=== PATIENT | female | born 1975 | race Caucasian/White ===

== ENCOUNTER 2023-01-21 11:16 | Outpatient (CLI) | payer BC, SELFPAY | END 2023-01-21 11:17 | disposition home or self-care (01) | PROVIDERS: PCP Family Medicine; Visit Provider Family Medicine | DX: I10 Essential (primary) hypertension (principal); E78.5 Hyperlipidemia, unspecified; E55.9 Vitamin D deficiency, unspecified; R74.8 Abnormal levels of other serum enzymes; Z13.0 Encounter for screening for diseases of the blood and blood-forming organs and certain disorders involving the immune mechanism; Z13.29 Encounter for screening for other suspected endocrine disorder | CPT/HCPCS: 80048; 80061; 84443 ==

== ENCOUNTER 2023-06-09 09:44 | Outpatient (CLI) | payer BC, SELFPAY ==
--- OUTSIDE RECORDS SUMMARY | 2023-06-09 09:53 | XMS_ITS | Clinical Summary ---
Author Name Unknown Organization [facility] Address [place], [place] [address] Care Team Providers Care Devops Name Role Phone Mainor Diehl MD Primary Care Provider [phone] Allergies No known active allergies Medications No known medications Immunizations Name Administration Dates Next Due Influenza, IIV3 (Age 6-35 mos) 04/05/2014 Influenza, IIV3 (Age >=3 years) 04/14/2008 Td (Age >=7 Years) 08/24/2003 Tdap 04/05/2014 Social History Tobacco Use Types Packs/Day Years Used Date Smoking Tobacco: Never Smokeless Tobacco: Never Tobacco Cessation:Counseling Given: Yes Sex and Gender Information Value Date Recorded Sex Assigned at Not on file Gender Identity Not on file Sexual Orientation Not on file Obstetrics History Last Filed Vital Signs Vital Sign Reading Time Taken Comments Blood Pressure 136/74 11/16/2017 2:25 PM CDT Pulse 72 11/16/2017 2:25 PM CDT Temperature 36.8 ??C (98.3 ??F) 11/16/2017 2:25 PM CD T Respiratory Rate - - Oxygen Saturation 98% 11/16/2017 2:25 PM CDT Inhaled Oxygen Concentration - - Weight 78.9 kg (174 lb) 11/16/2017 2:25 PM CDT Height - - Body Mass Index - - Plan of Treatment Health Maintenance Due Date Last Done Comments COVID-19 vaccine series (#1) 1976 Depression screening for age 12+ 1988 HIV for age 15-65 1991 BMI (ht and wt on same day) for age 18+ 1994 Hepatitis C screening for ag e 18-79 1994 Colonoscopy through age 75 2021 Lipids for age 45-75 2021 Mammogram for age 45-75 2021 Pap test for age 21-65 11/30/2021 9, 11/30/2018, 04/05/2014 Influenza for age 9-49 01/16/2023 04/14/2008 Tetanus booster 04/05/2024 04/05/2014, 08/24/2003 Tdap Completed 04/05/2014 Pneumococcal series for age 6-64 Aged Out No longer eligible b ased on patient's age to complete this topic Care Teams Devops Relationship Specialty Start Date End Date Mainor Diehl MD PCP - General 02/10/10
--- NOTE | 2023-06-09 10:15 | CRLHL7_ITS ---
For Patients: As a result of the Cures Act, medical imaging exams and procedure reports are released immediately into your electronic medical record. You may view this report before your referring provider. If you have questions, please contact your health care provider. BILATERAL SCREENING MAMMOGRAM WITH COMPUTER-AIDED DETECTION AND TOMOSYNTHESIS TECHNIQUE: CC and MLO views were obtained. These mammographic images have been obtained using full-field digital technique. These mammographic images were interpreted with the benefit of computer-aided detection. Breast Tomosynthesis was used in this interpretation. COMPARISON FILM: 01/02/17, 04/07/14. FINDINGS: There are scattered areas of fibroglandular density IMPRESSION: There is no radiographic evidence for malignancy. ASSESSMENT: BI-RADS Category 1: Negative RECOMMENDATION: Routine screening mammogram in 1 year. A lay language report of this examination will be provided to the patient. Abdi Shin M.D. Diagnostic Radiologist [email or web address] FRANCESCA/livan / be/Dictated by: Abdi Shin MD @ 06/09/2023 11:59:00 AM (Electronically Signed)
== END 2023-06-09 09:45 | disposition home or self-care (01) ==
PROVIDERS: PCP Family Medicine; Visit Provider Family Medicine
DX: Z12.31 Encounter for screening mammogram for malignant neoplasm of breast (principal)
CPT/HCPCS: 77063; 77067

== ENCOUNTER 2023-08-04 11:15 | Outpatient (CLI) | payer BC, SELFPAY | END 2023-08-04 11:16 | disposition home or self-care (01) | PROVIDERS: PCP Family Medicine; Visit Provider Physician Assistant | DX: N93.8 Other specified abnormal uterine and vaginal bleeding (principal); Z12.4 Encounter for screening for malignant neoplasm of cervix | CPT/HCPCS: 84443 ==

== ENCOUNTER 2023-08-06 13:57 | Outpatient (CLI) | payer BC, SELFPAY ==
--- NOTE | 2023-08-06 14:00 | US_ITS ---
Patient: LATRICIA CONNER Facility:?[facility] RIS Patient ID:?[id number] Site Patient ID:?[id number]. Site :?[id number] Study:?US-Pelvis TA/TV-08/06/2023 2:50:40 PM Ordering Physician:SIRENA Final Report: INDICATION: Abnormal uterine bleeding COMPARISON: none TECHNIQUE: 2D delong scale and color Doppler images were acquired of the pelvis using a transabdominal and transvaginal approach. FINDINGS: Left posterior lower uterine segment fibroid is present measuring 4.1 x 4.0 x 4.4 cm. Cervical nabothian cysts are present. Uterus measures 10.0 cm in length by 6.2 cm in AP diameter by 6.0 cm in transverse dimension. The endometrial lining measures 15 mm in composite thickness. The right ovary measures 6.2 x 4.8 x 2.1 cm in size and the left ovary measures 3.5 x 1.7 x 2.3 cm. The ovaries demonstrate normal arterial and venous blood flow on color Doppler analysis. There are no suspicious fluid collections within the cul-de-sac. Simple anechoic right ovarian cyst measures 5.0 x 4.2 x 4.5 cm. IMPRESSION: Left posterior lower uterine segment fibroid measuring 3.7 cm. Endometrial thickness 15 millimeters. Dictated by Abdi Shin MD @ 08/07/2023 11:32:19 AM Signed by:?Abdi Shin MD @08/07/2023 11:32:19 AM (Electronic Signature)
== END 2023-08-06 13:58 | disposition home or self-care (01) ==
LOC: US 13:58
PROVIDERS: PCP Family Medicine; Visit Provider Physician Assistant
DX: N93.8 Other specified abnormal uterine and vaginal bleeding (principal); D25.9 Leiomyoma of uterus, unspecified
CPT/HCPCS: 76830; 76856

== ENCOUNTER 2023-10-07 08:57 | Outpatient (CLI) | payer BC, SELFPAY ==
--- OUTSIDE RECORDS SUMMARY | 2023-10-07 08:59 | XMS_ITS | Clinical Summary ---
Author Organization [facility] Address [place], [place] [address] Care Team Providers Care Kier Operator Name Role Phone Mainor Diehl MD Primary Care Provider [phone] Allergies No known active allergies Medications No known medications Encounters Date Type Department Care Team Description 08/19/2023 Lab Requisition [facility] [phone] SarahAugust CHIQUITA Marcum 08/05/2023 Lab Requisition [facility] [phone] Sarah August CHIQUITA Marcum from Last 3 Months Immunizations Name Administration Dates Next Due Influenza, [...] Health Maintenance Due Date Last Done Comments Depression screening for age 12+ 1988 HIV for age 15-65 1991 BMI (ht and wt on same day) for age 18+ 1994 Hepatitis C screening for age 18-79 1994 Colonoscopy through age 75 2021 Lipids for age 45-75 2021 Mammogram for age 45-75 2021 COVID-19 vaccine series (2022-24 season) 2023 Influenza for age 9-49 01/17/2024 04/14/2008 Tetanus booster 04/05/2024 04/05/2014, 08/24/2003 Pap test for age 21-65 08/03/2026 , 08/04/2023, 11/30/2018, Additional history exists Tdap Completed 04/05/2014 Pneumococcal series for age 6-64 Aged Out No longer eligible based on patient's age to complete this topic Procedures Procedure Name Priority Date/Time Associated Diagnosis Comments LAB TRACKING EVENT Routine 08/18/2023 11 :55 AM CDT PATH TISSUE EXAM Routine 08/18/2023 11:5 5 AM CDT LAB TRACKING EVENT Routine 08/04/2023 11 :15 AM CDT MATE FOURTH THIN PREP PAP SCREEN IMAGED Routine 08/04/2023 11:15 AM CDT HPV THIN PREP Routine 08/04/2023 11:15 AM CDT from Last 3 Months Results * LAB TRACKING EVENT (08/18/2023 11:55 AM CDT) Only the most recent of2 resultswithin the time period is included. Other (Other) Client Collect / Unknown 08/18/2023 11:55 AM CDT 08/19/2023 3:33 PM CDT August Trixie Smith PA-C LAB BILL ONLY [facility] [address] [place] [address], [place] * PATH TISSUE EXAM (08/18/2023 11:55 AM CDT) Case Report Pathology Report ?Case: [id number] ? Authorizing Provider: ??Tammy Smith PA-C ?Collected: ? 08/18/2023 1155 ? Ordering Location: ? [facility] ?Received: ?08/19/2023 1655 ? Pathologist: ? Tramaine Dunn MD ? Specimen: ?Endometrial Biopsy ? 08/20/2023 10:41 AM [facility] ENTRAL LABORATORY Final Diagnosis A) ENDOMETRIUM, BIOPSY: 1. Secretory endometrium 2. Negative for chronic endometritis 3. Negative for hyperplasia, atypia, and malignancy 08/20/2023 10:41 AM [facility] Clinical Information Dysfunctional uterine bleeding 08/20/2023 10:41 AM [facility] Gross Description A) Received in formalin, labeled with the patient's name and endometrial BX, is a 2.3 x 1.6 x 0.2 cm aggregate of pink-nava mucosa admixed with clotted blood and mucous. The specimen is entirely submitted in 1 cassette. EKW 08/19/2023 08/20/2023 10:41 AM CDT [facility]TRAK LAB[facility]ORY Microscopic Description The final diagnosis is based on microscopic examination of appropriate sections of all specimens. 08/20/2023 10:41 AM CDT [facility] EN[facility]AL [facility]ORY Additional Information Interpreted at [facility] - [address] [place] [id number] 08/20/2023 10:41 AM CDT [facility] Other (Endometrial Biopsy) 08/18/2023 11:55 AM CDT 08/19/2023 4:55 PM CDT Tammy Smith PA-C PATHOLOGY/CYTOLOGY [facility] [address] [place] [address], * (ABNORMAL) MATE FOURTH THIN PREP PAP SCREEN IMAGED (08/04/2023 11:15 AM CDT) Case Report Gynecologic Cytology Report ? Case: [id number] ? Authorizing Provider: ??Tammy Smith PA-C ?Collected: ? 08/04/2023 1115 ? Ordering Location: ? [facility] ?Received: ?08/05/2023 1736 ? First Screen: ?Sherie Escalona ? Pathologist: ? Stephanie Cary ? MD Jennifer ? Specimen: ?MATE FOURTH ThinPrep Vial Screening, Cervical ? 08/13/2023 3:37 PM CDT [facility] [employer] LABORATORY-C ENTRAL LABORATORY INTERPRETATION/ RESULT ATYPICAL SQUAMOUS CELLS OF UNDETERMINED SIGNIFICANCE (ASCUS)(A) (none) 08/13/2023 3:37 PM CDT [facility] EN[facility] IMEN ADEQUACY Satisfactory for evaluation Endocervical component present 08/13/2023 3:37 PM CDT [facility]- EN[facility] LAB[facility]AT[facility] HPV REQUEST HPV and PAP 08/13/2023 3:37 PM CDT [facility]-C ENTRAL LABORATORY Date of LMP 08/13/2023 3:37 PM CDT [facility] Comment:unk Last Pap Date 11/30/2018 08/13/2023 3:37 PM CDT [facility]-C ENTRAL LABORATORY Last Pap Result NIL 3:37 PM CDT [facility]- ENTRAL LABORATORY Abnormal Pap or Burns Bx in last 5 years No 08/13/2023 3:37 PM CDT [facility] Menstrual Status Regular Periods 08/13/2023 3:37 PM CDT [facility] Burns Bx Done Today No 08/13/2023 3:37 PM CDT [facility] Additional Information 08/13/2023 3:37 PM CDT [facility] Comment: Interpreted at [facility] - [address], [place] [address] Automated Review Successful 08/13/2023 3:37 PM CDT [facility] Comment:Specimen processed s uccessfully by automated lining finisher device, tuulPrep Imaging System, [employer] ANCILLARY TESTING MATE FOURTH HPV Ordered, Please see separate report 08/13/2023 3:37 PM CDT [facility] Note The pap test is a screening technique, not a diagnostic procedure. It is used primarily to screen for squamous cancers and precursor lesions. Published studies have shown that it is subject to both false negative and false positive results. The pap test should not be used as the sole means to diagnose or exclude pre-malignant and malignant lesions. 08/13/2023 3:37 PM CDT [facility] Other (Cervical) 08/04/2023 11:15 AM CDT 08/05/2023 5:36 PM CDT August Trixie Smith PA-C PATHOLOGY/CYTOLOGY [facility] [address] [place] [address], * HPV HIGH RISK (08/04/2023 11:15 AM CDT) TYPE 16 Negative Negative 08/07/2023 11:31 AM CDT [facility] TYPE 18 Negative Negative 08/07/2023 11:31 AM CDT [facility] OTHER HIGH RISK TYPES Negative Negative 08/07/2023 11:31 AM CDT [facility] Other (Cervical) 08/04/2023 11:15 AM CDT 08/05/2023 5:36 PM CDT Narrative [facility] - 08/07/2023 11:31 AM CDT HPV types 16, 18, 31, 33, 35, 39, 45, 51, 52, 56, 58, 59, 66 and 68 DNA were undetectable or below the pre-set threshold. Methodology: Shaina Addie 4800 HPV Test August Sarah [facility] [address] [place] [address], from Last 3 Months Care Teams Kier Operator Relationship Specialty Start Date End Date Mainor Diehl MD PCP - General 02/10/10
== END 2023-10-07 08:58 | disposition home or self-care (01) ==
LOC: LKVREF 08:57
PROVIDERS: PCP Family Medicine; Visit Provider Family Medicine
DX: E78.5 Hyperlipidemia, unspecified (principal); E11.9 Type 2 diabetes mellitus without complications; I10 Essential (primary) hypertension
CPT/HCPCS: 80061

== ENCOUNTER 2024-01-21 12:18 | Outpatient (CLI) | payer BC, SELFPAY ==
--- NOTE | 2024-01-21 12:15 | CRLHL7_ITS ---
For Patients: As a result of the Century Cures Act, medical imaging exams and procedure reports are released immediately into your electronic medical record. You may view this report before your referring provider. If you have questions, please contact your health care provider. INDICATION: Previous ovarian cyst COMPARISON: 08/06/2023 TECHNIQUE: 2D delong scale and color Doppler images were acquired of the pelvis using a transabdominal and transvaginal approach. FINDINGS: Left inferior partially exophytic uterine fibroid again noted measuring 4.1 x 4.1 x 3.7 cm. Previously, this measured 3.7 cm. Additional right inferior uterine fibroid measures 13 x 13 x 15 millimeters. Uterus measures 10.0 cm in length by 4.6 cm in AP diameter by 4.9 cm in transverse dimension. The endometrial lining measures 12.9 mm in composite thickness. IUD is present within lower uterine segment. The right ovary measures 2.7 x 2.3 x 2.4 cm in size and the left ovary measures 3.2 x 2.0 x 2.3 cm. The ovaries demonstrate normal arterial and venous blood flow on color Doppler analysis. There are no suspicious fluid collections within the cul-de-sac. IMPRESSION: Ovaries are normal. No evidence of ovarian cysts. Uterine fibroids are present measuring up to 4.1 cm. IUD is located within the lower uterine segment. Endometrial thickness 12.9 millimeters. Dictated by Abdi Shin MD @ 01/21/2024 2:50:24 PM (Electronically Signed)
--- OUTSIDE RECORDS SUMMARY | 2024-01-21 12:24 | XMS_ITS | Clinical Summary ---
Author Organization [employer] [facility] Address [place], [place] [address] Care Team Providers Care Welfare Centre Manager Name Role Phone Mainor Diehl MD Primary Care Provider [phone] Allergies No known active allergies Medications No [...] Procedure Name Priority Date/Time Associated Diagnosis Comments HPV THIN PREP Routine 08/04/2023 11:15 AM CDT from Last 3 Months or Most Recently Relevant to Health Maintenance Results * HPV HIGH RISK (08/04/2023 11:15 AM CDT) TYPE 16 Negative Negative 08/07/2023 11:31 AM CDT [facility] TYPE 18 Negative Negative 08/07/2023 11:31 AM CDT [facility] OTHER HIGH RISK TYPES Negative Negative 08/07/2023 11:31 AM CDT [facility] Other (Cervical) 08/04/2023 11:15 AM CDT 08/05/2023 5:36 PM CDT Narrative [facility]-CENTRAL [facility] - 08/07/2023 11:31 AM CDT HPV types 16, 18, 31, 33, 35, 39, 45, 51, 52, 56, 58, 59, 66 and 68 DNA were undetectable or below the pre-set threshold. Methodology: Shaina Addie 4800 HPV Test August Sarah [facility] [address] [place] [address], from Last 3 Months or Most Recently Relevant to Health Maintenance Care Teams Welfare Centre Manager Relationship Specialty Start Date End Date Mainor Diehl MD PCP - General 02/10/10
== END 2024-01-21 12:19 | disposition home or self-care (01) ==
PROVIDERS: PCP Family Medicine; Visit Provider Physician Assistant
DX: N83.209 Unspecified ovarian cyst, unspecified side (principal); D25.9 Leiomyoma of uterus, unspecified
CPT/HCPCS: 76830; 76856

== ENCOUNTER 2024-03-18 10:33 | Outpatient (CLI) | payer BC, SELFPAY ==
--- OUTSIDE RECORDS SUMMARY | 2024-03-18 10:36 | XMS_ITS | Clinical Summary ---
Author Organization [employer] [facility] Address [place], [place] [address] Care Team Providers Care It Administrative Assistant Name Role Phone Mainor Diehl MD Primary Care Provider [phone] Allergies No known active allergies Medications No [...] for age 45-75 2021 COVID-19 vaccine series ( season) 2024 Influenza for age 9-49 01/17/2024 04/14/2008 Tetanus booster 04/05/2024 04/05/2014, 08/24/2003 Pap test for age 21-65 08/03/2026 , 08/04/2023, 11/30/2018, Additional history exists Tdap Completed 04/05/2014 Pneumococcal series for age 6-64 Aged Out No longer eligible based on patient's age to complete this topic Procedures Procedure Name Priority Date/Time Associated Diagnosis Comments HPV HIGH RISK Routine 08/04/2023 11:15 AM CDT from Last 3 Months or Most Recently Relevant to Health Maintenance Results * HPV HIGH RISK (08/04/2023 11:15 AM CDT) TYPE 16 Negative Negative 08/07/2023 11:31 AM CDT [facility] TYPE 18 Negative Negative 08/07/2023 11:31 AM CDT [facility] OTHER HIGH RISK TYPES Negative Negative 08/07/2023 11:31 AM CDT [facility] Other (Cervical) 08/04/2023 11:15 AM CDT 08/05/2023 5:36 PM CDT Narrative [facility] - 08/07/2023 11:31 AM CDT HPV types 16, 18, 31, 33, 35, 39, 45, 51, 52, 56, 58, 59, 66 and 68 DNA were undetectable or below the pre-set threshold. Methodology: Shaina Addie 4800 HPV Test August Sarah [facility] [address] [place] [address], from Last 3 Months or Most Recently Relevant to Health Maintenance Care Teams It Administrative Assistant Relationship Specialty Start Date End Date Mainor Diehl MD PCP - General 02/10/10
== END 2024-03-18 10:34 | disposition home or self-care (01) ==
LOC: LKVREF 10:35
PROVIDERS: PCP Family Medicine; Visit Provider Family Medicine
DX: I10 Essential (primary) hypertension (principal)
CPT/HCPCS: 80048

== ENCOUNTER 2024-03-23 09:19 | Day surgery (SDC) | payer BC, SELFPAY ==
[2024-03-23] VITALS (22 sets, daily range): BP systolic 103–141; BP diastolic 67–93; PULSE 60–89; RESP 16–20; TEMP 35.2–36.6; O2SAT 93–100; BMI 26.4
--- OUTSIDE RECORDS SUMMARY | 2024-03-23 09:21 | XMS_ITS | Clinical Summary ---
Author Organization [employer] [facility] Address [place], [place] [address] Care Team Providers Care Glass Block Bender Name Role Phone Mainor Diehl MD Primary Care Provider [phone] Allergies No known active allergies Medications No [...] 16 Negative Negative 08/07/2023 11:31 AM CDT [facility] TYPE 18 Negative Negative 08/07/2023 11:31 AM CDT [facility] OTHER HIGH RISK TYPES Negative Negative 08/07/2023 11:31 AM CDT [facility] Other (Cervical) 08/04/2023 11:15 AM CDT 08/05/2023 5:36 PM CDT Narrative [facility] - 08/07/2023 11:31 AM CDT HPV types 16, 18, 31, 33, 35, 39, 45, 51, 52, 56, 58, 59, 66 and 68 DNA were undetectable or below the pre-set threshold. Methodology: Shaina Addie 4800 HPV Test August Sarah [facility] [address] [place] [address], from Last 3 Months or Most Recently Relevant to Health Maintenance Care Teams Glass Block Bender Relationship Specialty Start Date End Date Mainor Diehl MD PCP - General 02/10/10
[2024-03-23] MEDS: SODIUM CHLORIDE 0.9 % (FLUSH) 10 ML SYRINGE IVF (09:25)
[2024-03-23 09:35] LABS: Ur HCG Qualitative* Negative (Negative)
[2024-03-23 10:19] LABS: Hemoglobin* 11.1 gm/dL (12.0-16.0)
[2024-03-23] MEDS: LACTATED RINGERS 1000 ML 1,000 ML 100 ML IV ×2 (10:35→12:41)
[2024-03-23] MEDS: SCOPOLAMINE 1 MG/3 DAY PATCH 1 PATCH TRANSDERMA (10:37)
[2024-03-23] MEDS: CEFAZOLIN 2 GM INJ IVP (10:55)
--- NOTE | 2024-03-23 11:12 | P.NB_ITS ---
Nerve Block Nerve Block Time Seen by Provider: 11:00 Date Seen: 03/23/24 Type of block requested by surgeon for post-operative analgesia: TAP Side: bilateral Time out performed: Yes Verification of patient name: Yes Verification of date of : Yes Site marking: site marked Name of person performing procedure: Yogi Linares Continuous monitoring Was continuous monitoring of O2 sat, B/P, phototypesetting equipment monitor, recorded every 15 minutes?: Yes Procedure Checklist: sterile prep, needles and gloves Ultrasound guided. Images saved: Yes Medications given in 5ml increments after negative aspiration: Marcaine %: 0.25 mL: 30 Needle gauge: 20 and Exparel mL: 10 Needle gauge: 20 Patient tolerated procedure well: Yes Additional comments: Injected in 5 mL increments after negative aspiration Block Charges Block Charge (with Pro Fee): TAP Bilateral Use of Ultrasound Machine for Block: Yes- US Guidance/pain block
[2024-03-23] MEDS: BUPIVACAINE 0.25% 30 ML INJECTION (12:03)
--- NOTE | 2024-03-23 13:29 | W.PM.H&PU ---
History & Physical Update History & Physical Update H&P Reviewed and patient assessed: No changes noted
--- NOTE | 2024-03-23 13:29 | W.PM.GYNPROC ---
Procedure Note Date of procedure: 03/23/24 Will [facility] bill your pro fee for this procedure?: Yes Pre-op diagnosis: 1. Dysfunctional uterine bleeding/ menorrhagia. 2. Uterine fibroid. 3. History of Essure tubal sterilization. Post-op diagnosis: Same. Procedure: 1. Total laparoscopic hysterectomy. 2. Bilateral salpingectomies. 3. Diagnostic cystoscopy Anesthesia: GETA and other (TAP block.) Complications: None. Surgeon: Nadine Bui MD Manager Intensive Care Unit: Michelle Ndiaye Estimated blood loss (mL): 75 Urine Output (mL): 200 Pathology: specimen obtained, sent to pathology (Uterus, bilateral fallopian tubes) Condition: stable Disposition: PACU Findings: Enlarged uterus with 4 cm diameter anterior MAURICIO fibroid. Normal left ovary with benign follicle cysts x2. Normal right ovary. Normal bilateral fallopian tubes. Procedure Description: After obtaining informed consent, the patient was taken to the operating room where general anesthesia was obtained without difficulty and a TAP block was performed. She was prepared and draped in the normal sterile fashion in the low dorsal lithotomy position. A Smart catheter was inserted into the bladder and left to gravity drainage. A medium Graves open-sided speculum was introduced into the vagina. The cervix was visualized and grasped along its anterior lip with a single-tooth tenaculum. The uterus was gently sounded. Sound length was found to be 10 cm. The cervix was gently dilated to a #5 dilator. I then placed an extra large VCare uterine manipulator. The tenaculum and speculum were removed. The green VCare cup was digitally pressed up against the cervix and then cinched in place with the blue accessory cup. I then changed gloves and my attention was turned to the abdomen. The superior aspect of the umbilicus was injected with 0.25% Marcaine plain. A 12 mm vertical incision was then made above the umbilicus using a scalpel. The fascia was grasped with two Kina clamps, elevated and incised with Davis scissors. The fascial incision was tagged with 0 vicryl. The underlying peritoneum was grasped with 2 Dulce Maria clamps, incised with Metzenbaum scissors, and an 11 mm laparoscopic port with CO2 gas set to a 25 mmHg was directly placed into the abdomen. The trocar was removed leaving the sleeve in place. The 10 mm laparoscope was used then to carefully inspect the abdomen and pelvis with findings noted above. Pictures were taken for documentation purposes. The patient was placed in Trendelenburg positioning. Two additional ports were placed in the right (11 mm) and left (5 mm) lower quadrants under direct visualization after first anesthetizing the skin and fascia with 0.25% Marcaine plain. Once the ports were in place, the VCare manipulator was used to elevate the uterus. The ureters were identified bilaterally along their courses in the pelvic sidewalls. The VCare cup was visualized and palpated with a blunt grasper. The right tube was elevated with a graspers. The Ligasure device was used to dissect the tube from it's ovarian and broad ligament and cornual attachments before removing the tube through a lower port. Excellent hemostasis was obtained. The right round ligament was then sealed in a wide swath and transected with the Ligasure. Excellent hemostasis was obtained. The broad ligament was then opened using the Ligasure anteriorly and posteriorly along the cervix from the right within the confines of the VCare cup. Pressure was maintained on the uterine manipulator the whole time. The right uterine vessels were sealed in a wide swath and transected with the Ligasure, then the tissues over the VCare cup edge on the right side were thinned using the Ligasure to the midline posteriorly and anteriorly so that the fascial layer could be identified. The left tube was elevated with a graspers. The Ligasure device was used to dissect the tube from it's ovarian and broad ligament and cornual attachments before removing the tube through a lower port. Excellent hemostasis was obtained. The left round ligament was then sealed in a wide swath and transected with the Ligasure. Excellent hemostasis was obtained. The broad ligament was then opened using the Ligasure anteriorly and posteriorly along the cervix from the left within the confines of the VCare cup. Pressure was maintained on the uterine manipulator the whole time. The left uterine vessels were sealed in a wide swath and transected with the Ligasure, then the tissues over the VCare cup edge on the left side were thinned using the Ligasure to the midline posteriorly and anteriorly so that the fascial layer could be identified. Once an adequate dissection was made circumferentially, the Ligasure was removed and the Logical Appslab spatula was used to incise the tissue circumferentially around the cervix within the groove of the VCare cup. Once the dissection was completed circumferentially, I was able to go below and remove the uterine manipulator and the uterus. A sterile glove containing 3 laparotomy sponges was placed into the vagina to aid in maintaining pneumoperitoneum. There was some arterial bleeding noted from the left uterine vessel pedicles. This was isolated and controlled with the Ligasure. The vaginal cuff was reapproximated in a running fashion with a V-Loc suture starting from the left side and running across to the right and then back to the midline where the suture was cut flush with the tissues. The pelvis was suctioned and hemostasis visualized. Preparations were then made for cystoscopy. Fluorescein was administered intravenously along with the IV fluids. The Smart catheter was removed. The patient was flattened out. Cystoscopy was performed using sterile normal saline as distending medium. The bladder was carefully inspected and noted to be free of filling defects or suture material. Both ureteral orifices were easily visualized and fluorescein tinged urine jets were noted from both sides. The cystoscope was then removed. The Smart catheter was replaced into the bladder. I then changed gloves again and my attention was once again turned to the abdomen. The abdomen and pelvis were irrigated and inspected for hemostasis. Peritoneal edges on the left were cauterized with the Valleylab. Ozzy was placed over the vaginal cuff and raw edges for extra hemostasis. The RLQ port was removed. The Enrique Kavya device was used to reapproximate the fascia at the port site in the right lower quadrant. All remaining instruments were then removed under direct visualization. Pneumoperitoneum was allowed to escape. The fascia was reapproximated at the umbilicus by tying the tagged 0 Vicryl sutures. The skin at all 3 port sites was closed in a subcuticular fashion with 4-0 Vicryl. Surgical glue was then placed over the incisions. The patient tolerated the procedure well. Sponge, lap, needle, and instrument counts were reported as correct x2. The patient was taken to the recovery room awake and in stable condition. She did receive 2 g of IV Ancef preoperatively and Toradol 30 mg IV at the conclusion of the procedure. Uterine weight was 228 g.
[2024-03-23] MEDS: HYDROmorphone 0.5 mg/0.5 ml inj IVP ×2 (13:35→14:12)
--- NOTE | 2024-03-23 13:38 | W.ANESCHARGE ---
Anesthesia Charges Start Date/Time Anesthesia Start Date: 03/23/24 Anesthesia Start Time: 10:38 Stop Date/Time Anesthesia Stop Date: 03/23/24 Anesthesia Stop Time: 13:36
[2024-03-23] MEDS: fentaNYL 100 MCG/2 ML inj 50 MCG IVP ×2 (13:50→14:05)
[2024-03-23] MEDS: MORPHINE 2 MG/ML inj IVP (15:19)
[2024-03-23] MEDS: KETOROLAC 30 MG/ML inj IVP (19:51)
[2024-03-23] MEDS: OXYCODONE 5 MG TABLET PO ×2 (21:15→23:48)
[2024-03-23] MEDS: ACETAMINOPHEN 500 MG TABLET 1000 MG PO (23:48)
[2024-03-24] MEDS: KETOROLAC 30 MG/ML inj IVP (01:47)
[2024-03-24 02:04] VITALS: BP 107/68; PULSE 58; RESP 18; TEMP 37; O2SAT 97
[2024-03-24 06:34] LABS: Hemoglobin* 9.4 gm/dL (12.0-16.0)
[2024-03-24] MEDS: OXYCODONE 5 MG TABLET PO (06:46)
[2024-03-24] MEDS: IBUPROFEN 600 MG TABLET PO (06:48)
[2024-03-24 06:52] LABS: Creatinine* 0.7 mg/dL (0.5-1.5); Estimated Glomerular Filt Rate 107 ml/min
--- NOTE | 2024-03-24 07:57 | PC.NURSE ---
Shift note ([id number]): Patient pleasant, alert and oriented.?Lap sites C,D&I. Given scheduled pain meds, PRN Oxycodone and PRN Tylenol for pain in abdomen rated 2-5/10. Oxycodone 5mg not touching pain. ON-call OB was called and new orders for Oxycodone were given. Catheter patent.?
[2024-03-24 07:59] VITALS: BP 110/71; PULSE 66; RESP 16; TEMP 36.8; O2SAT 97
--- NOTE | 2024-03-24 09:02 | PM.GYNDS1 ---
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 Indication for surgery: Dysfunctional uterine bleeding. She had an uncomplicated surgery. Postoperative course has been uneventful. Vitals have been stable. She has remained afebrile. Today, on postoperative day 1, she reports the pain is well controlled. She has been able to ambulate Without difficulty. She is tolerating regular diet. She is passing flatus. Smart catheter has been removed, and she is voiding without difficulty. 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 Chest: Clear to auscultation bilaterally Incisions: All clean, dry and intact with sutures and skin adhesive gel Abdomen: Soft, nontender, nondistended with normal bowel sounds throughout. No CVA or flank tenderness. 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 - DS: Data Data Completed and Pending Labs on day of discharge: Labs from last 24 hours 03/24/24 03/23/24 03/23/24 05:58 10:10 09:23 Hgb 9.4 L 11.1 L Creatinine 0.7 Estimated Creat Clear 89.40 Estimated GFR 107 Urine HCG, Qual Negative Blood Type O Positive Antibody Screen NEGATIVE Procedures Procedures: Procedures Operation Date: 03/23/24 11:00 Actual Procedure Side Surgeon p Total Laparoscopic Hysterectomy, Bilateral Salpingectomy, Diagnostic Cystoscopy Bilateral Nadine Bui MD Discharge Plan Discharge Disposition: Home w/ Parent or Adult Discharging Surgeon: Stephanie Lion Follow-Up Appointment: 2 weeks in [facility] with Dr. Bui Prescriptions: New ibuprofen 600 mg Tablet 600 mg PO Q6H Qty: 30 0RF oxycodone 5 mg Tablet 5 mg PO 3XD PRN (Reason: Moderate Pain) Qty: 21 0RF Continued multivitamin Tablet 1 tab PO QAM losartan 50 mg tablet 25 mg PO DAILY atorvastatin 40 mg tablet 40 mg PO DAILY metoprolol succinate 50 mg tablet extended release 24 hr 50 mg PO DAILY chlorthalidone 50 mg tablet 50 mg PO DAILY omeprazole 20 mg capsule,delayed release(DR/EC) 20 mg PO DAILY aspirin 81 mg tablet,delayed release (DR/EC) 81 mg PO DAILY cholecalciferol (vitamin D3) 10 mcg (400 unit) capsule 10 mcg PO DAILY Mounjaro 5 mg/0.5 mL pen injector 5 mg subcut QWEEK Qty: 2 3RF fluocinolone [Synalar] 0.01 % solution 1 applic topical BID PRN Discontinued hydrocodone-acetaminophen 5-325 mg tablet 1 - 2 tab PO Q6H PRN (Reason: pain) Qty: 30 0RF Activity Level: Activity as Tolerated Discharge Diet: Regular Patient Instructions: Laparoscopic Hysterectomy (DC) Additional Instructions: Discharge instructions were reviewed with the patient.? May use OTC Tylenol 1000 mg every 6 hours for pain in addition to prescribed pain medications. Use OTC colace daily to prevent constipation until bowel function normalizes. ? No lifting greater than 20 pounds for 6 weeks. Nothing per vagina for 6 weeks. Off work or school for 4-[address] while takine narcotic (oxycodone) pain medication. ? Follow up with your surgeon in 2 weeks for incision check and 6 weeks for a postoperative visit or sooner as needed. Follow-up: Mainor Diehl MD [Primary Care Provider] - Nadine Bui MD [Staff Physician] - Discharge Orders: Discharge Order (Routine); Ordered 03/24/24 Ordered By: Stephanie Lion
[2024-03-24] MEDS: OMEPRAZOLE 20 MG CAPSULE DR PO (09:18)
[2024-03-24] MEDS: ACETAMINOPHEN 500 MG TABLET 1000 MG PO (09:23)
--- NOTE | 2024-03-24 10:35 | PC.NURSE ---
Discharge: Patient pleasant and cooperative. Patient vitally stable, lungs clear, BS WNL, IV removed, catheter intact. Patient rates pain with activity 6/10, but no pain with no movement. Tylenol given once, ice pack used to abdomen. Patient abdominal lap sites x3 C/D/I. Patient signed discharge form and did not have a belongings sheet. Patient had no further questions. Patient left the floor to home by wheelchair at 1033.
== END 2024-03-24 10:33 | disposition home or self-care (01) ==
LOC: OR 09:19 → MEDSURG 09:23
PROVIDERS: PCP Family Medicine; Visit Provider Obstetrics & Gynecology
PROC: 0UT94ZZ Resection of Uterus, Percutaneous Endoscopic Approach (ICD-10-PCS; CPT 58571; principal; 2024-03-23 11:00)
DX: N92.0 Excessive and frequent menstruation with regular cycle (principal); D25.1 Intramural leiomyoma of uterus; N83.02 Follicular cyst of left ovary; N83.01 Follicular cyst of right ovary; G89.18 Other acute postprocedural pain; N93.8 Other specified abnormal uterine and vaginal bleeding; E11.9 Type 2 diabetes mellitus without complications; I10 Essential (primary) hypertension; K21.9 Gastro-esophageal reflux disease without esophagitis
CPT/HCPCS: 58571; 00840; 36415; 64488; 76942; 81025; 82565; 85018; 86850; 86900; 86901; 88307; A9270; C9290; J0665; J0690; J1100; J1171; J1885; J2250; J2270; J2405; J2704; J2710; J3010; J3490; J7120

== ENCOUNTER 2024-04-01 14:38 | Outpatient (CLI) | payer BC, SELFPAY ==
--- OUTSIDE RECORDS SUMMARY | 2024-04-05 23:43 | XMS_ITS | Clinical Summary ---
Author Organization [facility] Address [place], [place] [address] Care Team Providers Care Windsurfing Instructor Name Role Phone Mainor Diehl MD Primary Care Provider [phone] Allergies No known active allergies Medications No known medications Encounters Date Type Department Care Team Description 03/23/2024 Lab Requisition [facility] [phone] Nadine Bui MD from Last 3 Months Immunizations Name Administration [...] 72 11/16/2017 2:25 PM CDT Temperature 36.8 C (98.3 F) 11/16/2017 2:25 PM CDT Respiratory Rate - - Oxygen Saturation 98% [...] age 45-75 2021 COVID-19 vaccine series ( - 2023- season) 2024 Influenza for age 9-49 01/17/2024 04/14/2008 Tetanus booster 04/05/2024 04/05/2014, 08/24/2003 Pap test for age 21-65 08/03/2026 , 08/04/2023, 11/30/2018, Additional history exists Tdap Completed 04/05/2014 Pneumococcal series for age 6-64 Aged Out No longer eligible based on patient's age to complete this topic Procedures Procedure Name Priority Date/Time Associated Diagnosis Comments LAB TRACKING EVENT Routine 03/23/2024 12 :34 PM RESOURCE MANAGER FORESTER PATH TISSUE EXAM Routine 03/23/2024 12:3 4 PM RESOURCE MANAGER FORESTER HPV HIGH RISK Routine 08/04/2023 11:15 AM CDT from Last 3 Months or Most Recently Relevant to Health Maintenance Results * LAB TRACKING EVENT (03/23/2024 12:34 PM RESOURCE MANAGER FORESTER) Other (Other) Client Collect / Unknown 03/23/2024 12:34 PM RESOURCE MANAGER FORESTER 03/23/2024 10:15 PM RESOURCE MANAGER FORESTER Nadine Bui MD LAB BILL ONLY [facility] [address] [place] [place] [address], * PATH TISSUE EXAM (03/23/2024 12:34 PM RESOURCE MANAGER FORESTER) Case Report Pathology Report Case: [id number] Authorizing Provider: Nadine Bui MD Collected: 03/23/2024 1234 Ordering Location: [facility] Received: 03/24/2024 0625 Pathologist: Ana Heller MD Specimen: Uterus,cervix,mark ateral fallopian tubes (no ovaries) 03/28/2024 3:46 PM RESOURCE MANAGER FORESTER [facility] Final Diagnosis A) UTERUS WITH CERVIX AND FALLOPIAN TUBES, TOTAL HYSTERECTOMY WITH BILATERAL SALPINGECTOMY: 1. Cervix: Nabothian cysts 2. Endometrium: Proliferative phase 3. Myometrium: Leiomyoma (intramural) and Adenomyosis 4. Uterine serosa: Adhesions, focal 5. Bilateral fallopian tubes: Benign paratubal cysts 6. Uterine weight: 212 grams 7. Negative for malignancy 03/28/2024 3:46 PM RESOURCE MANAGER FORESTER [facility] Clinical Information 48-year-old with abnormal uterine bleeding and uterine fibroid, ASCUS on recent Pap with negative HR-HPV. Intraoperative findings: Enlarged uterus with 4 cm anterior lower uterine segment fibroid, normal left ovary with benign cysts, normal right ovary and bilateral fallopian tubes. 03/28/2024 3:46 PM RESOURCE MANAGER FORESTER [facility] Gross Description A) Received in formalin, labeled with the patient's name and uterus, bilateral fallopian tubes and ovaries, is a 212 gram(uterus and cervix weight only), 10.7 (fundus-cervix) by 6.5 (cornu-cornu) by 5.6 (anterior-posteri or) cm distorted total hysterectomy and unattached bilateral fimbriated fallopian tube specimen. The 4.0 cm long, 3.5 cm diameter cervix has a 1.0 cm cervical os. The ectocervical mucosa is smooth with a distinct squamocolumnar junction. The endocervical canal is patent. The endometrium is 0.4 cm thick. No endometrial lesions are identified. There is a 3.9 x 3.5 x 3.5 cm pink rubbery well-circumscribe d intramural nodule. Intramural nodule has a white whorling center with no evidence of hemorrhage, necrosis or calcification. The myometrium is 1.9 cm thick. The serosa is smooth. Fallopian tube 1: 5.4 cm in length by 0.5 cm in diameter fimbriated fallopian tube with attached paratubal cyst measuring 0.7 cm. The serosal surface is smooth and glistening. The cut surface has a stellate lumen surrounded by unremarkable mucosa. Fallopian tube 2: 4.5 cm in length by 0.5 cm in diameter fimbriated fallopian tube. The serosal surface is smooth and glistening. The cut surface has a stellate lumen surrounded by unremarkable mucosa. Veneer Clipper sections and entire fimbria are submitted: 1. Anterior cervix 2. Posterior cervix 3. Anterior uterine wall, full-thickness 4. Posterior endomyometrium, partial thickness 5-7. Intramural nodule 8. Fallopian tubes 1 and entire fimbria 9. Fallopian tube 2 and entire fimbria Time and date in formalin: 1234 on 03/23/2024 TRS 03/24/2024 03/28/2024 3:46 PM RESOURCE MANAGER FORESTER [facility] Microscopic Description The final diagnosis is based on microscopic examination of appropriate sections of all specimens. 03/28/2024 3:46 PM RESOURCE MANAGER FORESTER [facility] Additional Information Interpreted at [facility] - [address] [facility] [address] [address] 03/28/2024 3:46 PM RESOURCE MANAGER FORESTER [facility] Other (Uterus,cervix,bi lateral fallopian tubes (no ovaries)) 03/23/2024 12:34 PM RESOURCE MANAGER FORESTER 03/24/2024 6:25 AM RESOURCE MANAGER FORESTER Nadine Bui MD PATHOLOGY/CYTOLOGY [facility] [address] [place] [address], * HPV HIGH RISK (08/04/2023 11:15 AM CDT) TYPE 16 Negative Negative 08/07/2023 11:31 AM CDT [facility] TYPE 18 Negative Negative 08/07/2023 11:31 AM CDT [facility] OTHER HIGH RISK TYPES Negative Negative 08/07/2023 11:31 AM CDT [facility] Other (Cervical) 08/04/2023 11:15 AM CDT 08/05/2023 5:36 PM CDT Narrative [facility] - 08/07/2023 11:31 AM CDT HPV types 16, 18, 31, 33, 35, 39, 45, 51, 52, 56, 58, 59, 66 and 68 DNA were undetectable or below the pre-set threshold. Methodology: Shaina Addie 4800 HPV Test August Sarah [facility] [address] [place] [address], from Last 3 Months or Most Recently Relevant to Health Maintenance Care Teams Windsurfing Instructor Relationship Specialty Start Date End Date Mainor Diehl MD PCP - General 02/10/10
== END 2024-04-01 14:39 | disposition home or self-care (01) ==
LOC: NFLDREF 04-05 23:42
PROVIDERS: PCP Family Medicine; Referring Provider Family Medicine; Visit Provider Family Medicine
DX: Z13.29 Encounter for screening for other suspected endocrine disorder (principal)
CPT/HCPCS: 84439; 84443

== ENCOUNTER 2025-01-26 10:50 | Outpatient (CLI) | payer BC, SELFPAY | END 2025-01-26 10:51 | disposition home or self-care (01) | LOC: NFLDREF 01-31 07:41 | PROVIDERS: PCP Family Medicine; Referring Provider Family Medicine; Visit Provider Physician Assistant | DX: N39.3 Stress incontinence (female) (male) (principal) | CPT/HCPCS: 87086 ==

== ENCOUNTER 2025-01-30 10:37 | Outpatient (CLI) | payer BC, SELFPAY ==
--- NOTE | 2025-01-30 10:45 | CRLHL7_ITS ---
For Patients: As a result of the Century Cures Act, medical imaging exams and procedure reports are released immediately into your electronic medical record. You may view this report before your referring provider. If you have questions, please contact your health care provider. CLINICAL HISTORY: Pelvic and perineal pain COMPARISON: None. TECHNIQUE: 2D delong-scale ultrasound. In addition, color Doppler and spectral Doppler analysis was performed of the pelvis using a transabdominal and transvaginal approach. Transvaginal imaging performed to better visualize the ovaries. FINDINGS: The uterus is absent. The right ovary is not visualized due to bowel gas and the left ovary measures 3.8 x 2.7 x 2.6 cm. The left ovary demonstrates normal arterial and venous blood flow on color Doppler and spectral Doppler analysis. There are no suspicious fluid collections within the cul-de-sac. IMPRESSION: Normal left ovary. No excess pelvic free fluid. Nonvisualization of right ovary due to overlying bowel gas. Dictated by Abdi Shin MD @ 01/30/2025 12:40:51 PM (Electronically Signed)
== END 2025-01-30 10:38 | disposition home or self-care (01) ==
LOC: US 10:37
PROVIDERS: PCP Family Medicine; Visit Provider Physician Assistant
DX: R10.2 Pelvic and perineal pain (principal)
CPT/HCPCS: 76830; 76856; 93976